=== PATIENT | male | born 1950 | race Caucasian/White ===

== ENCOUNTER → 2019-08-11 | Outpatient (CLI) | payer MEDICARE, OTHER ==
[~2019-08-11] MED LIST: ALEVE 220MG220 MG PO; ASPI81CT10; ASPIRIN 81M81 MG/TA2 PO; COZAAR100 MG PO; DUO-KAPS1 CAP PO; FELDENE20 MG PO; FOLIC ACID 11 MG/TA1 PO; LEVAQUIN 750MG750 M1 PO; LIPITOR 40MG TA40 MG PO; LISINOPRIL/HCTZ1 TA1 PO; NORVASC 10MG10 MG PO; PREDNISONE20 MG PO; PRINIVIL20 MG PO; PROTONIX 40MG T40 MG PO; THIAMINE 1100 MG/TAB PO; TOPROL XL 50MG50 MG PO; TYLENOL 500MG500 MG PO; ZOCOR 40MG40 MG
== END ==
LOC: COL.PUL 07:42
DX: J45.20 Mild intermittent asthma, uncomplicated (principal)

== ENCOUNTER 2019-10-08 09:30 | Emergency (ER) | payer MEDICARE ==
[~2019-10-08] VITALS: Ht 177.8 cm; Wt 100.0 kg
[2019-10-08 09:46] VITALS: BP 137/83; TEMP 98.3
[2019-10-08 11:40] VITALS: PULSE 67
[2019-10-08] MEDS ORDERED: NORCO 325 MG-51 TAB PO (11:42)
== END 2019-10-08 11:40 | disposition home or self-care (01) ==
LOC: COL.ER 09:30
DX: M79.672 Pain in left foot (principal); E78.5 Hyperlipidemia, unspecified; I10 Essential (primary) hypertension; Z79.82 Long term (current) use of aspirin; Z98.890 Other specified postprocedural states